=== PATIENT | female | born 1995 | race American Indian/Alaskan Native ===

== ENCOUNTER 2021-06-06 19:14 | Inpatient (IN) | payer MEDICAID ==
[2021-06-06] MEDS ORDERED: LACTATED RINGERS 1,000 ML ONE (20:01)
[2021-06-06] MEDS ORDERED: MINERAL OIL 30 ML ORAL LIQD PO PRN (20:10)
[2021-06-06] MEDS ORDERED: BUTORPHANOL 2 MG/1 ML INJ IV PRN (20:10)
[2021-06-06] MEDS ORDERED: ONDANSETRON 4 MG/2 ML INJ IV PRN (20:10)
[2021-06-06] MEDS ORDERED: ACETAMINOPHEN 325 MG TAB PO PRN (20:10)
--- NOTE | 2021-06-06 20:25 | History and Physical Report ---
History of Present Illness Date of examination: 06/06/21 Date of admission: 06/06/21 19:14 Chief complaint: sent from [facility] for IOL d/t IUGR <1st%, abnormal dopplers, oligohydramnios and elevated b/p in office today History of present illness: EDC Confirmation: 06/28/2021 Past History : 1 Term Births: 0 Premature Births: 0 Living Children: 0 Para: 0 Mult. Births: 0 Prev : 0 Prev. attempt? 0 Aborta: 0 Elect. Ab: 0 Spont. Ab: 0 Ectopics: 0 Past Medical History: Reviewed and updated today: Negative Past Medical History Past Surgical History: Reviewed and updated today: Appendectomy (2019) Family History Summary: Mother - Has Family History of Hypertension - Entered On: 01/07/2021 Social History: Patient is single Smoking History: Patient has never smoked. 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 Infection History Hx of STD: "maybe" unknown type or treatment 2011 HIV Risk Eval: no Hepatitis B Risk Eval: low risk Personal hx. of genital herpes: no Partner hx. of genital herpes: no Rash, Viral, or Febrile illness since last LMP? no Varicella/Chicken Pox Status: Immunized Genetic History Congenital Heart Defect: Mom: no Dad: no Nat Disease: Mom: no Dad: no Thalassemia Mom: no Dad: no Neural Tube Defect Mom: no Dad: no Down's Syndrome Mom: no Dad: no Manuel-Sachs Mom: no Dad: no Sickle Cell Disease/Trait Mom: no Dad: no Hemophilia Mom: no Dad: no Muscular Dystrophy Mom: no Dad: no Cystic Fibrosis Mom: no Dad: no Amy Chorea Mom: no Dad: no Mental Retardation Mom: no Dad: no Fragile X Mom: no Dad: no Other Genetic/Chromosomal Disorder Mom: no Dad: no Child w/other defect Mom: no Dad: no Enviromental Exposures Xray Exposure: no Medication, drug, or alcohol use since LMP: no Chemical/Other Exposure: no Exposure to Cat Liter: yes Hx of Parvovirus (Fifth Disease): no Occupational Exposure to Children: none Active Medications (reviewed today): None Current Allergies (reviewed today): No known allergies Past History Past Medical History: other (see HPI) Past Surgical History: other (see HPI) 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) Family/Genetic History: other (see HPI) Social history: other (see HPI) - Obstetrical History Expected Date of Delivery: 06/28/21 Actual Gestation: 36 Week(s) 6 Day(s) : 1 Para: 0 Hx # Term Pregnancies: 0 Number of Pregnancies: 0 Spontaneous Abortions: 0 Induced : 0 Number of Living Children: 0 Medications and Allergies Allergies Allergy/AdvReac Type Severity Reaction Status Date / Time kiwi Allergy Rash Unverified 06/06/21 19:16 Home Medications Medication Instructions Recorded Confirmed Last Taken Type No Known Home Medications [No 06/06/21 06/06/21 Unknown History Reported Home Medications] Active Meds: Active Medications Acetaminophen (Acetaminophen 325 Mg Tab) 650 mg PO Q4H PRN PRN Reason: Pain, Mild (1-3) Butorphanol Tartrate (Butorphanol 2 Mg/1 Ml Inj) 1 mg IV Q2H PRN PRN Reason: Pain, Moderate(4-6) LABOR PAIN Lactated Ringer's (Lactated Ringers) 1,000 mls @ 125 mls/hr IV DIRECT HERMILA Mineral Oil (Mineral Oil 30 Ml Oral Liqd) 30 ml PO QHS PRN PRN Reason: Constipation Ondansetron HCl (Ondansetron 4 Mg/2 Ml Inj) 4 mg IV Q8H PRN PRN Reason: Nausea And Vomiting Review of Systems All systems: negative Constitutional: no fever, no chills, no sweats, no night sweats, no malaise Eyes: no blurred vision, no loss of peripheral vision, no loss of vision, no blind spots Cardiovascular: edema, no chest pain Respiratory: no cough, no shortness of breath, no congestion Gastrointestinal: no abdominal pain Genitourinary: no vaginal bleeding, no leakage of fluid, no genital sores, no contractions Neurological: no headaches - Vital Signs Vital signs: Vital Signs Pulse Pulse Ox 79 100 06/06/21 20:08 06/06/21 20:08 Temp Pulse Resp BP Pulse Ox 76 100 06/06/21 20:13 06/06/21 20:13 - Physical Exam Breasts: Positive: deferred Cardiovascular: Regular rate Lungs: Positive: Normal air movement Abdomen: Positive: normal appearance, soft. Negative: distention, tenderness, guarding Genitourinary (Female): Positive: normal external genitalia, normal perenium Vulva: both: normal Vagina: Positive: normal moisture Uterus: Positive: normal size, normal contour, other (gravid) Anus/Rectum: Positive: normal perianal skin, heme negative Extremities: Positive: edema (3+ pitting BLE) - Obstetrical FHR: auscultation normal, category 1 Uterine Contraction Monitor Mode: External Cervical Dilatation: 0 Cervical Effacement Percentage: 50 station: -2 Uterine Contraction Pattern: Irregular Uterine Tone Measurement Phase: Resting Results All other labs normal. Tests: (1) RPR, Rfx Qn RPR/Confirm TP ([id number]) RPR Non Reactive Non Reactive *1 Tests: (2) HIV Ab/p24 Ag with Reflex ([id number]) HIV Ab/p24 Ag Screen Non Reactive Non Reactive *2 Tests: (1) Ct, Ng, Trich vag by JANKI ([id number]) Order Note: Clinical Information: SRC:VR SRC:UR Chlamydia by JANKI Negative Negative *1 Gonococcus by JANKI Negative Negative *2 Trich vag by JANKI Negative Negative *3 Tests: (2) Strep Gp B JANKI ([id number]) ! Strep Gp B JANKI Negative Negative *4 Tests: (1) Profile I ([id number]) HBsAg Screen Negative Negative *1 RPR Non Reactive Non Reactive *2 Rubella Antibodies, IgG 2.83 index Immune >0.99 *3 Non-immune <0.90 Equivocal 0.90 - 0.99 Immune >0.99 ABO Grouping B *4 Rh Factor Negative *5 Please note: Prior records for this patient's ABO / Rh type are not available for additional verification. Antibody Screen Negative Negative *6 WBC 7.0 x10E3/uL 3.4-10.8 *7 RBC 4.42 x10E6/uL 3.77-5.28 *8 Hemoglobin 11.8 g/dL 11.1-15.9 *9 Hematocrit 36.5 % 34.0-46.6 *10 MCV 83 fL 79-97 *11 MCH 26.7 pg 26.6-33.0 *12 MCHC 32.3 g/dL 31.5-35.7 *13 RDW 13.8 % 11.7-15.4 *14 Platelets 337 x10E3/uL 150-450 *15 Neutrophils 67 % Not Estab. *16 Lymphs 28 % Not Estab. *17 Monocytes 5 % Not Estab. *18 Eos 0 % Not Estab. *19 Basos 0 % Not Estab. *20 ! Immature Cells <No Reported Value> *21 Neutrophils (Absolute) 4.6 x10E3/uL 1.4-7.0 *22 Lymphs (Absolute) 2.0 x10E3/uL 0.7-3.1 *23 Monocytes(Absolute) 0.4 x10E3/uL 0.1-0.9 *24 Eos (Absolute) 0.0 x10E3/uL 0.0-0.4 *25 Baso (Absolute) 0.0 x10E3/uL 0.0-0.2 *26 ! Immature Granulocytes 0 % Not Estab. *27 ! Immature Grans (Abs) 0.0 x10E3/uL 0.0-0.1 *28 ! NRBC <No Reported Value> *29 Hematology Comments: <No Reported Value> *30 Tests: (2) AFP Tetra ([id number]) ! Results Report *31 ! Test Results: *Screen Negative* *32 ! Gest. Age on Collection Date 19.4 WEEKS *33 ! Gestat. Age Based On RANDAL *34 06/28/2021 ! M[age] RANDAL 28[age]2 yr *35 ! Race Black *36 ! Weight 161 lbs *37 ! Insulin Dep Diabetes No *38 ! Multiple Gestation No *39 ! AFP Value 80.6 ng/mL *40 ! AFP MoM 1.45 *41 ! hCG Value 84803 mIU/mL *42 ! hCG MoM 1.07 *43 ! uE3 Value 1.36 ng/mL *44 ! uE3 MoM 0.70 *45 ! FLORIDALMA Value 265.24 pg/mL *46 ! FLORIDALMA MoM 1.60 *47 ! OSBR Risk 1 IN 6265 *48 ! DSR (Second Trimester) 1 IN 1584 *49 ! DSR (By Age) 1 IN 842 *50 ! T18 Risk Not increased *51 ! T18 (By Age) 1:3281 *52 ! Interpretation NL42 *53 Interpretation: Screen Negative This result is screen negative for OSB, Down Syndrome and Trisomy 18. The AFP MoM and patient specific risks calculated are based on the gestational age and the clinical information provided. This test can identify up to 80% of open neural tube defects. Closed neural tube defects and some open defects may not be detected by this test. The combination of maternal age, AFP, hCG, uE3, and FLORIDALMA identifies 75-80% of Down Syndrome. The combination of maternal age, AFP, hCG and uE3 identifies 60% of Trisomy 18 pregnancies. The [employer] recommends amniocentesis be offered to women age 35 and older. Recalculations are not recommended when gestational dating by LMP and ultrasound are within 10 days. ! Comments: SPRCS *54 Elysia Herrera, Ph.D., [facility] Director References: Available Upon Request. Multiples Of Median Cutoffs Abbreviation Definitions For AFP Elevations IDD- Insulin Dep Diabetes Louise 2.5 Black 2.8 OSBR- Open Spina Bifida IDD 2.0 Twins 4.5 Risk DSR Cutoff 1:270 DSR- Down Syndrome Risk T18 Cutoff 1:100 T18- Trisomy 18 Down Syndrome and Trisomy 18 screening are considered Investigational For further inquiries contact [employer] at [phone]. Tests: (3) HB Solu + Rflx [facility] ([id number]) Hemoglobin (Hgb) Solubility Negative Negative *55 Tests: (4) HIV Ag/Ab with Reflex ([id number]) HIV Screen 4th Generation wRfx Non Reactive Non Reactive *56 Tests: (5) HCV Antibody reflex to JANKI ([id number]) HCV Ab 0.3 s/co ratio 0.0-0.9 *57 Tests: (6) Interpretation: ([id number]) ! Interpretation: SPRCS *58 Negative Not infected with HCV, unless recent infection is suspected or other evidence exists to indicate HCV infection. Assessment and Plan POC d/w pt. All questions and concerns addressed. Pt verbalizes understanding and agrees to POC. - Patient Problems (1) 36 to 37 weeks gestation of Current Visit: Yes Status: Acute Plan to address problem: initiate IV draw admission and preeclampsia labs serial IOL, cervidil placed continuous monitoring (2) IUGR (intrauterine growth restriction) Current Visit: Yes Status: Acute (3) Oligohydramnios without rupture of membranes in third trimester Current Visit: Yes Status: Acute (4) Blood pressure elevated without history of HTN Current Visit: Yes Status: Acute Plan to address problem: Magnesium Sulfate IV Magnesium level q6h seizure precautions strict I&O antihypertensives IV and PO monitor BP and ssx for worsening Dr Alcantar aware
[2021-06-06] MEDS: LACTATED RINGERS 1,000 ML IV SCH (21:03)
[2021-06-06] MEDS ORDERED: hydrALAZINE 20 MG/1 ML INJ IV PRN (21:10)
[2021-06-06] MEDS ORDERED: DINOPROSTONE 10 MG VAG SUPP VG ONE (21:49)
[2021-06-06] MEDS ORDERED: MAGNESIUM SULFATE 4 GM/100 ML BAG IV ONE (21:50)
[2021-06-06] MEDS ORDERED: hydrALAZINE 20 MG/1 ML INJ IV ONE (21:53)
[2021-06-06] MEDS ORDERED: MAGNESIUM SULFATE 40GM/1000ML 40 GM/1,000 ML BAG IV SCH (22:00)
[2021-06-06 22:26] LABS: Hematocrit 33.4 % (30.3-42.9); Hemoglobin 10.2 gm/dl (10.1-14.3); Mean Corpuscular HGB Conc 30 % (30-34); Mean Corpuscular Volume 73 fl (79-97); Platelet Count 335 K/mm3 (140-440); Red Blood Count 4.57 M/mm3 (3.65-5.03); Red Cell Distribution Width 14.9 % (13.2-15.2)
[2021-06-06 22:31] LABS: Alanine Aminotransferase 26 units/L (7-56); Uric Acid 5.5 mg/dL (3.5-7.6)
[2021-06-06 22:48] LABS: Bilirubin,Urine NEG (Negative); Blood,Urine NEG (Negative); Color,Urine Straw (Yellow); RBC,Urine < 1.0 /HPF (0.0-6.0); Urobilinogen,Urine < 2.0 mg/dL (<2.0); WBC,Urine < 1.0 /HPF (0.0-6.0)
[2021-06-06 23:09] LABS: Creatinine,Urine 59.5 mg/dL (0.1-20.0); Protein/Creatinine Ratio,Urine 1.04
--- NOTE | 2021-06-06 23:55 | Event Note ---
Date: 06/06/21 Pt afebrile; T 99.7, HR elevated to 120's-130's; CNM to bedside. Pt anxious and crying, reports discomfort felt from catheter and feeling regular painful contractions. FHT's cat 2 responsive to resuscitation measures, now Cat 1. D/w pt and RN plan to watch VS and order blood cultures if febrile or ssx of sepsis. Pt denies exposure to illness, fever, chills, sweats, ssx of infection, and LOF suspicious of rupture at this time. Discussed cervidil to be removed PRN for distress persistent through and resistant to resuscitation. Pt and RN verbalize understanding. @4396: CNM and fire extinguisher [email or web address] Tena at bedside, resuscitation measures done. Cervidil removed for persisting late decels. Dr. Alcantar made aware. Orders received to prepare pt for OR. Risks with delivery discussed with pt and SO, including but not limited to trauma to internal organs, infection, and bleeding. Pt verbalizes understanding and agrees to POC.
[2021-06-07] MEDS ORDERED: BICITRA ORAL LIQD 30ML PO ONE (00:54)
[2021-06-07] MEDS ORDERED: FAMOTIDINE 20 MG/2 ML INJ IV ONE (00:54)
[2021-06-07] MEDS ORDERED: METOCLOPRAMIDE 10 MG/2 ML INJ IV ONE (00:54)
[2021-06-07] MEDS ORDERED: OXYTOCIN DRIP 30 UNITS/500 ML BAG IV SCH (01:00)
[2021-06-07] MEDS ORDERED: LACTATED RINGERS 1,000 ML IV SCH (01:00)
[2021-06-07] MEDS: LACTATED RINGERS 1,000 ML IV SCH ×3 (02:30→10:26)
--- NOTE | 2021-06-07 03:47 | Event Note ---
Date: 06/07/21 To patient bedside. Discussed recommendation of delivery due to intolerance to labor. Risks reviewed with patient and consents signed.
--- NOTE | 2021-06-07 07:52 | Anesthesia Day of Surgery ---
Anesthesia Day of Surgery - Day of Surgery Patient Examined: Yes Patient H&P Reviewed: Yes Patient is NPO: Yes
--- NOTE | 2021-06-07 07:52 | Anesthesia Consultation ---
Anesthesia Consult and Med Hx Date of service: 06/07/21 - Airway Anesthetic Teeth Evaluation: Good ROM Head & Neck: Adequate Mental/Hyoid Distance: Adequate Mallampati Class: Class II Intubation Access Assessment: Probably Good - Pre-Operative Health Status ASA Pre-Surgery Classification: ASA2 Proposed Anesthetic Plan: Epidural, Spinal - Pulmonary Hx Asthma: No COPD: No Hx Pneumonia: No - Cardiovascular System Hx Hypertension: Yes (elevated BP without previous history) - Central Nervous System Hx Seizures: No Hx Psychiatric Problems: No - Endocrine Hx Renal Disease: No Hx End Stage Renal Disease: No Hx Hypothyroidism: No Hx Hyperthyroidism: No - Hematic Hx Anemia: No Hx Sickle Cell Disease: No - Other Systems Hx Alcohol Use: No Hx Obesity: Yes (BMI 38.0)
[2021-06-07] MEDS ORDERED: PROMETHAZINE 25 MG TAB PO PRN (08:30)
[2021-06-07] MEDS ORDERED: NALOXONE 0.4 MG/1 ML INJ IV PRN ×2 (08:30→11:00)
[2021-06-07] MEDS ORDERED: ONDANSETRON 4 MG/2 ML INJ IV PRN (08:30)
[2021-06-07] MEDS ORDERED: HYDROmorphone 1 MG/1 ML INJ IV PRN (08:30)
[2021-06-07] MEDS ORDERED: PROMETHAZINE 25 MG RECT SUPP PR PRN (08:30)
[2021-06-07] MEDS ORDERED: BUPIVACAINE/PF (0.25%) 2.5 MG/ML 30 ML VIAL INFILTRATI ONE (08:50)
[2021-06-07] MEDS ORDERED: dexAMETHasone 20 MG/5 ML VIAL ONE (08:50)
--- NOTE | 2021-06-07 09:47 | Operative Report ---
Operative Report Operative Report: Date of procedure: 06/07/2021 Pre-operative diagnosis: 37 weeks gestation Gestational hypertension Intrauterine growth restriction intolerance to labor induction Oligohydramnios Post-operative diagnosis: Same Procedure name(s): Primary low transverse section via Pfannenstiel skin incision Surgeon: Dr. Squires Yoga Coordinator: JUAN R Anesthesia: Combined spinal epidural EBL: 702 mL Urine output: 150 mL of clear urine out at end of procedure Fluids: 1 L Findings: Liveborn male infant weight 4 pounds 9 ounces Apgars of 8 and 9 at 1 and 5 minutes Grossly normal fallopian tubes and ovaries bilaterally Grossly normal uterus Indications: Patient was admitted for labor induction due to the above-stated reasons. Patient was unable to tolerate placement of Cervidil or starting Pitocin without having repetitive late decelerations. Decision was made at this time to proceed with operative delivery due to intolerance to labor induction. All risk benefits and alternatives were discussed with the patient. Consents were signed and placed on the chart. Procedure: Patient was taking to the operating room. Patient was then prepped and draped in sterile fashion after anesthesia was found to be adequate. A low transverse skin incision was made with the scalpel and carried down to the underlying layer of fascia with the Bovie. The fascia was then incised in the midline and this incision was extended bilaterally with the Bovie. The superior aspect of the fascia was grasped with María clamps tented upward and dissected off of the anterior rectus muscles with the scalpel. In similar fashion the inferior aspect of the fascia was grasped with María clamps tented upward and dissected off of the anterior rectus muscles. The rectus muscles were then bluntly divided in the midline. The peritoneum was identified and entered into sharply. The bladder blade was placed. The bladder flap was created using the Metzenbaum scissors. The bladder blade was replaced. A lower transverse uterine incision was made with the scalpel and extended bilaterally with the ba tomer scissors. Artificial rupture of membranes was performed yielding [clear amniotic fluid]. The 's head was then delivered atraumatically. The anterior shoulder and rest of delivered without difficulty. The umbilical cord was clamped x2. The cord was cut. The was then placed in sterile bassinet. [The cord blood was collected.] The placenta was manually extracted in its entirety. The uterus was exteriorized and cleared of all clots and debris. The uterine incision was closed using 0 Vicryl in a running locking fashion. A second imbricating layer of the same suture was then created. The posterior cul-de-sac was copiously irrigated. The uterus was returned to the abdomen. The gutters were also irrigated. The anterior rectus muscles were reapproximated using 3-0 Vicryl. The anterior rectus fascia was reapproximated using 0 Vicryl in a running fashion. The subcuticular fat was reapproximated using 2-0 Vicryl in a running fashion. The skin was reapproximated with 4-0 Monocryl in a subcuticular stitch. The patient tolerated the procedure well. Sponge lap and needle counts were all correct x3. Patient was taken to the recovery room awake and in stable condition.
[2021-06-07] MEDS ORDERED: WITCH HAZEL/ GLYCERIN PAD TP PRN (11:00)
[2021-06-07] MEDS ORDERED: HYDROcodone/ACETAMINOPHEN 5-325 MG TAB PO PRN (11:00)
[2021-06-07] MEDS ORDERED: LANOLIN/ZINC/DIMETHICONE (LANSINOH) 7 GM TP PRN (11:00)
[2021-06-07] MEDS ORDERED: MAGNESIUM SULFATE 40GM/1000ML 40 GM/1,000 ML BAG IV ONE (13:00)
[2021-06-07] MEDS: KETOROLAC 30 MG/1 ML INJ IV PRN (17:10)
[2021-06-07] MEDS: ceFAZolin/NS 1 GM/50 ML 1 GM/50 ML BAG IV SCH (17:13)
[2021-06-07 21:59] LABS: Hematocrit 28.5 % (30.3-42.9); Hemoglobin 8.6 gm/dl (10.1-14.3)
[2021-06-08] MEDS: ceFAZolin/NS 1 GM/50 ML 1 GM/50 ML BAG IV SCH (01:03)
[2021-06-08] MEDS ORDERED: LACTATED RINGERS 1,000 ML ONE (03:17)
[2021-06-08] MEDS: KETOROLAC 30 MG/1 ML INJ IV PRN (03:22)
[2021-06-08 09:15] LABS: Alanine Aminotransferase 20 units/L (7-56); Uric Acid 6.9 mg/dL (3.5-7.6)
--- NOTE | 2021-06-08 09:50 | Event Note ---
Date: 06/08/21 Mag sulfate d/c'd, Patient in shower and will be transferred to [facility] later this morning. Labetalol increased to 300mg PO BID. Called and spoke to RN, she is aware of new order.
[2021-06-08] MEDS ORDERED: TETANUS,DIPH,PERTUSS(ACELL) VACCINE 0.5 ML SYRINGE IM ONE (10:00)
--- NOTE | 2021-06-08 12:04 | Progress Note ---
Assessment and Plan Pt in bed resting quietly. No concerns voiced. States mild lower abd pain, pain controlled with medications. ABD dressing removed, steri strips to site, incision dried and intact and open to air. Discussed Incision care with pt, verbalized understanding. Baby in bassinet, no distress noted. Breast and formula feeding. Discussed control options, wants BC and plans to decided with method at next office visit. Encouraged to contact nurse if any concerns arise. JANAK Quesada CNM - Patient Problems (1) delivery delivered Current Visit: Yes Status: Acute Plan to address problem: Continue pathway Advance activity as tolerated Discharge planned for tomorrow (2) Gestational hypertension Current Visit: Yes Status: Acute Qualifiers: Trimester: third trimester Qualified Code(s): O13.3 - Gestational [-induced] hypertension without significant proteinuria, third trimester Plan to address problem: Increased Labetolol to 300mg BID Closely monitor BP Subjective - Subjective Date of service: 06/08/21 Principal diagnosis: Post op day #1, C/S with GHTN Patient reports: appetite normal, voiding normally, pain well controlled, ambulating normally, no dizzy ambulation, no nauseated : doing well Objective - Vital Signs Latest vital signs: Vital Signs Temp Pulse Resp BP BP Pulse Ox Pulse Ox 06/08/21 10:30 98.0 F 87 18 143/67 100 06/08/21 10:00 70 166/75 06/08/21 09:21 75 164/77 06/08/21 09:20 84 100 06/08/21 09:15 83 166/75 100 06/08/21 09:10 82 100 06/08/21 09:05 83 99 06/08/21 09:00 90 100 06/08/21 08:55 84 99 06/08/21 08:50 85 100 06/08/21 08:45 84 98 06/08/21 08:40 81 100 06/08/21 08:35 79 100 06/08/21 08:30 84 99 06/08/21 08:25 76 100 06/08/21 08:20 88 99 06/08/21 08:15 82 100 06/08/21 08:10 83 100 06/08/21 08:05 93 H 92 06/08/21 08:00 84 100 06/08/21 07:55 80 100 06/08/21 07:52 100 06/08/21 07:50 96 H 99 06/08/21 07:49 100 06/08/21 07:45 79 98 06/08/21 07:40 78 98 06/08/21 07:35 75 99 06/08/21 07:30 79 99 06/08/21 07:25 79 99 06/08/21 07:20 86 100 06/08/21 07:15 77 98 06/08/21 07:14 76 135/70 06/08/21 07:10 78 99 06/08/21 07:05 82 98 06/08/21 07:00 78 98 06/08/21 06:55 81 100 06/08/21 06:50 95 H 99 06/08/21 06:45 87 100 06/08/21 06:40 83 99 06/08/21 06:35 82 99 06/08/21 06:30 79 99 06/08/21 06:25 80 99 06/08/21 06:20 80 100 06/08/21 06:15 82 100 06/08/21 06:14 81 134/76 06/08/21 06:10 84 100 06/08/21 06:05 91 H 99 06/08/21 06:00 87 98 06/08/21 05:55 76 98 06/08/21 05:50 90 100 06/08/21 05:45 77 98 06/08/21 05:40 76 98 06/08/21 05:35 76 99 06/08/21 05:30 80 98 06/08/21 05:25 80 99 06/08/21 05:20 79 99 06/08/21 05:15 79 98 06/08/21 05:14 78 134/73 06/08/21 05:10 80 99 06/08/21 05:05 82 99 06/08/21 05:00 85 99 06/08/21 04:55 87 100 06/08/21 04:50 91 H 98 06/08/21 04:45 87 99 06/08/21 04:40 87 98 06/08/21 04:35 87 98 06/08/21 04:30 88 98 06/08/21 04:25 80 99 06/08/21 04:20 84 98 06/08/21 04:15 81 99 03 04:14 80 143/78 03 04:10 88 99 03 04:05 83 100 03 04:00 81 100 06/08/21 03:55 81 100 06/08/21 03:50 78 99 06/08/21 03:45 76 99 03 03:40 78 99 03 03:35 79 99 03 03:30 91 H 99 06/08/21 03:25 79 99 03 03:22 16 06/08/21 03:20 85 99 03 03:15 86 99 06/08/21 03:14 90 16 138/75 138/75 99 06/08/21 03:10 83 99 06/08/21 03:05 78 97 06/08/21 03:00 77 97 06/08/21 02:55 78 97 06/08/21 02:50 82 98 03 02:45 77 98 06/08/21 02:40 79 97 06/08/21 02:35 79 98 06/08/21 02:30 79 98 06/08/21 02:25 78 98 06/08/21 02:20 82 99 06/08/21 02:15 85 99 06/08/21 02:14 86 16 135/85 135/85 99 06/08/21 02:10 89 99 06/08/21 02:05 86 99 06/08/21 02:00 78 98 06/08/21 01:55 79 98 06/08/21 01:50 76 99 06/08/21 01:47 83 92 03 01:45 83 98 03 01:40 86 100 06/08/21 01:35 85 99 03 01:30 83 98 06/08/21 01:25 83 99 03 01:20 84 98 06/08/21 01:15 80 99 03 01:14 79 16 133/73 133/73 99 03 01:10 83 99 03 01:05 86 99 03 01:00 83 98 03 00:55 79 98 06/08/21 00:50 80 98 03/26/22 00:45 78 99 0322 00:40 75 99 0322 00:35 78 99 0322 00:30 79 98 0322 00:25 82 98 0322 00:20 83 98 0322 00:15 85 98 0322 00:14 82 16 130/77 130/77 98 0322 00:10 88 99 03 00:05 87 98 03 00:00 81 99 03/22 23:55 83 99 0325/22 23:50 86 99 03/22 23:45 78 98 0322 23:40 78 98 0322 23:35 79 98 0322 23:30 77 98 0322 23:25 76 98 0322 23:20 75 98 0322 23:15 90 97 03/22 23:14 90 16 117/70 117/70 97 0322 23:10 77 98 0322 23:05 76 98 032522 22:59 77 98 0322 22:55 78 98 03/22 22:50 77 99 0322 22:45 81 99 03/22 22:40 83 99 0322 22:35 77 99 0322 22:29 79 100 0322 22:25 81 99 0322 22:23 16 99 0322 22:20 76 99 032522 22:15 80 100 0325/22 22:14 80 15 137/86 137/86 100 0325/22 22:10 77 99 0325/22 22:05 80 100 03/25/22 21:59 78 100 0325/22 21:55 76 99 0325/22 21:50 80 99 0325/22 21:47 80 131/77 0325/22 21:45 84 99 0325/22 21:40 77 99 0325/22 21:35 79 99 03/25/22 21:30 88 99 0325/22 21:25 90 98 03/25/22 21:20 81 98 03/25/22 21:15 82 98 03/25/22 21:14 82 16 131/77 131/77 98 0322 21:10 85 98 03 21:05 85 99 03 21:00 83 99 0322 20:55 82 99 0322 20:50 84 98 06/07/21 20:45 84 99 03 20:40 86 99 06/07/21 20:37 97.5 F L 83 16 135/80 100 06/07/21 20:35 85 98 03 20:31 100 0322 20:30 90 98 06/07/21 20:25 82 99 06/07/21 20:20 84 98 06/07/21 20:15 79 99 03 20:14 81 135/82 03 20:11 100 06/07/21 20:09 84 100 06/07/21 20:05 86 100 06/07/21 20:00 81 100 06/07/21 19:55 83 100 06/07/21 19:50 83 99 06/07/21 19:44 100 H 100 06/07/21 19:39 84 100 06/07/21 19:34 80 99 06/07/21 19:29 88 99 06/07/21 19:24 79 99 06/07/21 19:19 84 99 06/07/21 19:14 90 146/81 98 06/07/21 19:09 90 99 06/07/21 19:04 93 H 98 06/07/21 18:59 89 99 06/07/21 18:54 92 H 99 06/07/21 18:49 86 99 0322 18:44 93 H 99 06/07/21 18:39 88 99 03 18:34 95 H 98 06/07/21 18:29 93 H 98 03 18:24 92 H 98 06/07/21 18:19 93 H 98 06/07/21 18:14 92 H 137/75 98 03 18:09 96 H 98 06/07/21 18:04 91 H 98 0322 17:59 93 H 98 06/07/21 17:54 87 98 06/07/21 17:49 92 H 98 06/07/21 17:44 95 H 98 06/07/21 17:39 106 H 98 06/07/21 17:34 85 99 06/07/21 17:29 79 99 06/07/21 17:24 83 99 06/07/21 17:19 81 99 06/07/21 17:14 83 146/75 99 06/07/21 17:09 84 98 06/07/21 17:04 80 98 06/07/21 16:59 81 99 06/07/21 16:54 81 99 06/07/21 16:49 86 99 06/07/21 16:44 77 99 06/07/21 16:39 81 98 06/07/21 16:34 79 99 06/07/21 16:29 81 99 06/07/21 16:24 83 99 06/07/21 16:19 84 99 06/07/21 16:14 83 146/87 99 06/07/21 16:09 88 100 06/07/21 16:04 81 99 06/07/21 15:59 82 99 06/07/21 15:54 77 99 06/07/21 15:49 98.2 F 86 18 99 06/07/21 15:44 85 99 06/07/21 15:39 85 99 06/07/21 15:34 81 99 06/07/21 15:29 96 H 99 06/07/21 15:24 76 99 06/07/21 15:19 79 98 06/07/21 15:15 73 148/83 06/07/21 15:14 74 99 06/07/21 15:09 79 99 06/07/21 15:04 80 98 06/07/21 14:59 77 98 06/07/21 14:54 82 98 06/07/21 14:49 78 98 06/07/21 14:44 83 98 06/07/21 14:39 82 99 06/07/21 14:34 79 98 06/07/21 14:29 78 98 06/07/21 14:24 76 99 06/07/21 14:19 79 99 06/07/21 14:14 75 139/83 98 06/07/21 14:09 78 98 06/07/21 14:04 78 98 06/07/21 13:59 73 100 06/07/21 13:54 74 99 06/07/21 13:49 75 99 06/07/21 13:44 76 100 06/07/21 13:39 77 99 06/07/21 13:34 75 99 06/07/21 13:32 97.6 F 20 06/07/21 13:29 75 99 06/07/21 13:24 86 99 06/07/21 13:19 85 100 06/07/21 13:14 84 140/96 99 06/07/21 13:09 80 99 06/07/21 13:04 80 99 06/07/21 12:59 79 99 06/07/21 12:54 81 100 06/07/21 12:49 81 99 06/07/21 12:44 78 99 06/07/21 12:39 78 100 06/07/21 12:34 73 99 06/07/21 12:29 78 99 06/07/21 12:24 78 99 06/07/21 12:19 76 99 06/07/21 12:14 74 147/87 99 06/07/21 12:09 65 99 Intake and Output 06/07/21 06/08/21 06/08/21 23:59 07:59 15:59 Intake Total 50 Output Total 2400 1500 800 Balance -2350 -1500 -800 Intake: IV 50 ANCEF/NS 1 GM/50 ML 1 gm 50 In 50 ml @ 100 mls/hr IV Q8H [facility] Rx#:[id number] Output: Urine 2400 1500 800 Indwelling Catheter 2400 1500 800 Other: Total, Output Amount 300 700 800 - Exam Breasts: Present: normal Cardiovascular: Present: Regular rate Lungs: Present: Clear to auscultation, Normal air movement Abdomen: Present: normal appearance, soft Uterus: Present: firm Extremities: Present: edema (BLE +1) Incision: Present: dry, intact Comments: Steri strips to site - Labs Labs: Abnormal lab results 06/07/21 06/07/21 06/07/21 Range/Units 14:00 20:45 20:45 Hgb 8.6 L (10.1-14.3) gm/dl Hct 28.5 L (30.3-42.9) % Creatinine (0.6-1.2) mg/dL Magnesium 5.40 H 6.00 H (1.7-2.3) mg/dL Lactate Dehydrogenase (91-180) units/L 06/08/21 06/08/21 06/08/21 Range/Units 03:58 08:14 08:14 Hgb (10.1-14.3) gm/dl Hct (30.3-42.9) % Creatinine 0.5 L (0.6-1.2) mg/dL Magnesium 6.60 H 6.70 H (1.7-2.3) mg/dL Lactate Dehydrogenase 278 H (91-180) units/L
--- NOTE | 2021-06-08 14:36 | Post Anesthesia Evaluation ---
- Post Anesthesia Evaluation Patient Participated: Yes Airway Patent: Yes Stable Respiratory Function: Yes Nausea/Vomiting: No Temp > 96.8F: Yes Pain Manageable: Yes Adequeate Hydration: Yes Anesthesia Complications: No Block Receding Appropriately: Yes Patient on Ventilator: No
[2021-06-08] MEDS: IBUPROFEN 800 MG TAB PO PRN (21:48)
[2021-06-09] MEDS: IBUPROFEN 800 MG TAB PO PRN ×3 (05:00→22:22)
--- NOTE | 2021-06-09 08:20 | Progress Note ---
Assessment and Plan Pt in bed breast milk bottle feeding baby. No concerns voiced. Incision clean, dry, and intact with steri strips to site. Lochia scant. Pain well controlled Discussed plan of care and discharge planning for tomorrow as we continue to monitor Blood pressure for today. Encouraged to contact nurse if any concerns arise. JANAK Quesada CNM - Patient Problems (1) delivery delivered Current Visit: Yes Status: Acute Plan to address problem: Continue pathway Advance activity as tolerated (2) Gestational hypertension Current Visit: Yes Status: Acute Qualifiers: Trimester: third trimester Qualified Code(s): O13.3 - Gestational [-induced] hypertension without significant proteinuria, third trimester Plan to address problem: Labetolol 300mg BID - b/p's better managed but will continue to monitor and titrate as needed. Closely monitor BP Possible discharge tomorrow if stable Subjective - Subjective Date of service: 06/09/21 Principal diagnosis: Post op day #2; C/S with GHTN Patient reports: appetite normal, voiding normally, pain well controlled, ambulating normally, no dizzy ambulation, no nauseated [place]: doing well, bottle feeding Objective - Vital Signs Latest vital signs: Vital Signs Temp Pulse Resp BP BP Pulse Ox Pulse Ox 06/09/21 07:49 98 06/09/21 04:56 98.9 F 84 20 140/78 98 06/09/21 00:20 98.8 F 20 119/75 06/08/21 21:49 82 137/83 06/08/21 21:30 100 06/08/21 18:09 100 06/08/21 16:30 100 06/08/21 16:15 98.2 F 98 H 18 142/79 100 06/08/21 12:00 100 06/08/21 10:30 98.0 F 87 18 143/67 100 06/08/21 10:00 70 166/75 06/08/21 09:21 75 164/77 06/08/21 09:20 84 100 06/08/21 09:15 83 166/75 100 06/08/21 09:10 82 100 06/08/21 09:05 83 99 06/08/21 09:00 90 100 06/08/21 08:55 84 99 06/08/21 08:50 85 100 06/08/21 08:45 84 98 06/08/21 08:40 81 100 06/08/21 08:35 79 100 06/08/21 08:30 84 99 06/08/21 08:25 76 100 06/08/21 08:20 88 99 06/08/21 08:15 82 100 Intake and Output 06/08/21 06/09/21 06/09/21 23:59 07:59 15:59 Intake Total 320 600 Output Total 900 Balance -580 600 Intake: Oral 320 Intake, Free Water 600 Output: Urine 900 Void 900 Other: Total, Intake Amount 320 Total, Output Amount 900 # Voids Void 1 - Exam Breasts: Present: normal Cardiovascular: Present: Regular rate Lungs: Present: Normal air movement Abdomen: Present: normal appearance, soft Uterus: Present: normal, firm, fundal height below umbilicus Extremities: Present: normal, edema (Non pitting +1) Incision: Present: normal, dry, intact - Labs Labs: Abnormal lab results 06/08/21 06/08/21 Range/Units 08:14 08:14 Creatinine 0.5 L (0.6-1.2) mg/dL Magnesium 6.70 H (1.7-2.3) mg/dL Lactate Dehydrogenase 278 H (91-180) units/L
[2021-06-09] MEDS: FERROUS SULFATE 325 MG TAB PO SCH (09:07)
[2021-06-09] MEDS: PRENATAL VIT27-FE FUMARATE-FOLIC ACID VIT TAB PO SCH (09:07)
--- NOTE | 2021-06-09 13:02 | Event Note ---
Date: 06/09/21 Pt continues to have blood pressures systolic 140-160's. Labetalol increase to Q8hr, rn called and informed.
[2021-06-10] MEDS: IBUPROFEN 800 MG TAB PO PRN (05:22)
--- NOTE | 2021-06-10 09:14 | Discharge Summary ---
Providers - Providers Date of Admission: 06/06/21 20:10 Date of discharge: 06/10/21 Attending physician: EZIO ELIZONDO MD Primary care physician: EZIO ELIZONDO MD Hospitalization Reason for admission: induction of labor, IUP at term Delivery: Procedure: section, primary low transverse Episiotomy: none Laceration: none Incision: normal, dry, intact Other procedures: none complications: none Discharge diagnosis: IUP at term delivered baby: male Condition at discharge: Good Disposition: 01 HOME / SELF CARE / HOMELESS - Discharge Diagnoses (1) delivery delivered Status: Acute Comment: Pt postop day #3, s/p Magnesium; VSSAF since labetalol increased yesterday morning, preeclampsia labs reviewed and LDH improving. Pt reports ambulating, voiding, eating, and infant without difficulties. Pt reports desires for elective circumcision. Incision clean, dry, and intact. Extremities with 1+ pitting edema on BLE. Fundus firm at umbilicus with scant lochia noted on peripad. Breasts assessed as normal and filling d/t . support and education given. (2) Gestational hypertension Status: Acute Qualifiers: Trimester: third trimester Qualified Code(s): O13.3 - Gestational [-induced] hypertension without significant proteinuria, third trimester Comment: Pt denies REYES, vision changes, and RUQ abdominal pain. Discharge precautions and follow up in office by Thursday d/w pt. Pt verbalizes understa nding and agrees to POC. Dr. Squires made aware. Plan to discharge home stable this afternoon if BPs continue WNL and no ssx of worsening condition. (3) Rh negative, maternal Status: Acute Comment: Rhogam given . Plan - Discharge Medications Prescriptions: Docusate Sodium [Colace] 100 mg PO BID PRN #60 capsule PRN Reason: Constipation Docusate Sodium [Colace] 100 mg PO BID #60 capsule Lidocain2.5%/Prilocai2.5% [Emla] 1 applic TP ONCE #1 tube Lidocain2.5%/Prilocai2.5% [Emla] 2 gm TP ONCE #1 tube Labetalol HCl [Labetalol 300mg TAB] 300 mg PO Q8H 30 Days #90 tab Ibuprofen [Motrin 800 MG tab] 800 mg PO Q8HR #30 tablet oxyCODONE /ACETAMINOPHEN [Percocet 5/325] 1 tab PO Q6HR PRN #20 tablet PRN Reason: Pain oxyCODONE /ACETAMINOPHEN [Percocet 5/325] 1 tab PO Q4HR #20 tab Vit-Fe Fumar-FA [ Vitamin] 1 tab PO QDAY #30 tablet - Provider Discharge Summary Activity: routine, no sex for 6 weeks, no heavy lifting 4 weeks, no strenuous exercise Diet: routine Instructions: routine Additional instructions: [] Smoking cessation referral if applicable(refer to patient education folder for contact #) [] Refer to [facility] Booklet Call your doctor immediately for: * Fever > 100.5 * Heavy vaginal bleeding ( >1 pad per hour) * Severe persistent headache * Shortness of breath * Reddened, hot, painful area to leg or breast * Drainage or odor from incision. * Keep incision clean and dry at all times and follow doctor's instructions regarding bathing/showering Congratulations! Please call [phone] and schedule your postoperative appointment to be seen in the office by this Thursday06/14/21. Please also schedule your circumcision in 1 week, as desired. Remember to bring your prescriptions to your visit. Do not apply the lidocaine cream to your prior to the procedure. The must be assessed during the appointment to determine if circumcision is able to be performed. Thanks! - Follow up plan Follow up: EZIO ELIZONDO MD [Primary Care Provider] - 7 Days
[2021-06-10] MEDS: PRENATAL VIT27-FE FUMARATE-FOLIC ACID VIT TAB PO SCH (10:07)
[2021-06-10] MEDS: FERROUS SULFATE 325 MG TAB PO SCH (10:08)
[2021-06-10 16:43] VITALS: BP 142/80
== END 2021-06-10 18:15 | disposition home or self-care (01) | DRG 765 ==
LOC: UNDOADMIN 19:14 → LD 19:14 → OB 06-08 10:45 → UNDODISIN 06-10 12:00
PROVIDERS: ADMIT Student in an Organized Health Care Education/Training Program; ATTEND Student in an Organized Health Care Education/Training Program
PROC: 10D00Z1 Extraction of Products of Conception, Low, Open Approach (ICD-10-PCS; principal; 2021-06-07)
PROC: 3E0334Z Introduction of Serum, Toxoid and Vaccine into Peripheral Vein, Percutaneous Approach (ICD-10-PCS; 2021-06-08)
PROC: 3E0234Z Introduction of Serum, Toxoid and Vaccine into Muscle, Percutaneous Approach (ICD-10-PCS; 2021-06-08)
DX: O36.5930 Maternal care for other known or suspected poor fetal growth, third trimester, not applicable or unspecified (principal); O41.03X0 Oligohydramnios, third trimester, not applicable or unspecified; O13.4 Gestational [pregnancy-induced] hypertension without significant proteinuria, complicating childbirth; Z37.0 Single live birth; Z20.822 Contact with and (suspected) exposure to COVID-19; O99.214 Obesity complicating childbirth; Z3A.37 37 weeks gestation of pregnancy; Z23 Encounter for immunization
CPT/HCPCS: 36415; 59200; 81001; 82565; 82570; 83615; 83735; 84156; 84450; 84460; 84550; 85014; 85018; 85027; 85461; 86850; 86900; 86901; 88307; G0378; J3490; J0360; J0690; J1100; J1885; J2765; J2790; J3475; J7120; U0003